=== PATIENT | male | born 1965 | race Caucasian/White ===

== ENCOUNTER 2016-06-25 12:14 | Emergency (ER) | payer MEDICARE, MEDICAID ==
[~2016-06-25] VITALS: Ht 180.3 cm; Wt 68.0 kg
[~2016-06-25 12:14] MED LIST: ACETAMINOPHEN500 M3 ORAL; ALBUTEROL SULF8.5 GM INH; ALBUTEROL2.5 MG/3 M HHN; AMOXICILLIN875 MG PO; ATIVAN0.5 MG ORAL; AURALGAN OTIC1 DROP LEFT EAR; AZITHROMYCIN250 MG ORAL; CLONAZEPAM2 M1 PO; CYCLOBENZAPRINE10 MG ORAL; DEPAKOTE500 MG PO; DOXYCYCLINE MO100 MG ORAL; FLONASE1 SPRAYS NASAL; IBUPROFEN600 MG ORAL; KEFLEX500 MG ORAL; KLONOPIN; KLONOPIN1 MG ORAL; NORCO 5-325 TA1 EACH ORAL; PREDNISONE20 MG ORAL; RISPERDAL; RISPERDAL3 MG PO; ROBAXIN-750750 MG PO; SILVADENE CREAM50 GM TOP; TRAMADOL HCL50 MG ORAL; ZITHROMAX250 MG ORAL; ZYPREXA10 MG ORAL
[2016-06-25 12:20] VITALS: BP 123/54
[2016-06-25] MEDS ORDERED: ALBUTEROL2.5 MG/3 M INH (12:37)
[2016-06-25] MEDS ORDERED: TERBUTALINE SU2.5 MG PO (12:37)
[2016-06-25] MEDS ORDERED: ZITHROMAX250 MG ORAL (12:37)
[2016-06-25] MEDS ORDERED: ADULT AEROSOL1 EACH MC (12:43)
[2016-06-25 12:44] VITALS: BP 118/66
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
== END 2016-06-25 12:45 | disposition home or self-care (01) ==
LOC: EMR 12:25
DX: J44.1 Chronic obstructive pulmonary disease with (acute) exacerbation (principal); J45.909 Unspecified asthma, uncomplicated; F17.200 Nicotine dependence, unspecified, uncomplicated
CPT/HCPCS: 99284

== ENCOUNTER 2016-07-17 12:40 | Emergency (ER) | payer MEDICARE, MEDICAID ==
[~2016-07-17] VITALS: Ht 182.9 cm; Wt 68.0 kg
[~2016-07-17 12:40] MED LIST changes: +ADULT AEROSOL1 EACH MC; +ALBUTEROL2.5 MG/3 M INH; +TERBUTALINE SU2.5 MG PO
[2016-07-17] MEDS ORDERED: Ipratropium 0.02% Inh Soln 2.5ml UD HHN ONE (13:30)
[2016-07-17] MEDS ORDERED: Albuterol ud Inhalation HHN ONE (13:30)
[2016-07-17] MEDS ORDERED: PROAIR HFA8.5 GM INH (14:15)
[2016-07-17] MEDS ORDERED: PREDNISONE20 MG ORAL (14:15)
[2016-07-17 14:30] VITALS: BP 129/75
--- NOTE | 2016-07-17 19:22 | Emergency Room Report ---
History of Present Illness General Chief Complaint: General Complaint Source: Patient Present Illness [facility] The patient is a 50-year-old male with a history of chronic bronchitis presenting for increased cough and wheezing which began this morning. Cough is dry. Patient states that he recently began smoking cigarettes after quitting for the past month. Pt denies any pain. The patient denies other symptoms including N, V, F, chills, CP, RAYO, dizziness, rash Allergies: Coded Allergies: No Known Allergies (Unverified , 05/03/13) Patient History Past Medical History: see triage record Pertinent Family History: none Reviewed Nursing Documentation: PMH: Agreed, PSxH: Agreed Nursing Documentation-PMH Past Medical History: No History, Except For Hx Cardiac Problems: No Hx Hypertension: No Hx Pacemaker: No Hx Asthma: Yes Hx COPD: Yes Hx Diabetes: No Hx Cancer: No Hx Gastrointestinal Problems: No Hx Dialysis: No Hx Neurological Problems: No - bulging disc Hx Cerebrovascular Accident: No Hx Seizures: No Hx Weakness: Yes - marisa.lower ext. Review of Systems All Other Systems: negative except mentioned in HPI Physical Exam Vital Signs Date Time Temp Pulse Resp B/P Pulse Ox O2 Delivery O2 Flow Rate FiO2 07/17/16 12:45 97.2 70 20 126/66 98 Room Air Sp02 EP Interpretation: reviewed, normal General Appearance: no apparent distress, alert, GCS 15, non-toxic Head: normocephalic, atraumatic Eyes: bilateral eye PERRL, bilateral eye normal inspection ENT: hearing grossly normal, normal pharynx, no angioedema, normal voice Respiratory: wheezing - diffuse Cardiovascular #1: regular rate, rhythm, no edema Genitourinary: normal inspection, no CVA tenderness Musculoskeletal: back normal, gait/station normal, normal range of motion, non- tender Neurologic: alert, oriented x3, responsive, motor strength/tone normal, sensory intact, normal gait, speech normal Psychiatric: judgement/insight normal, memory normal, mood/affect normal, no suicidal/homicidal ideation Skin: normal color, no rash, warm/dry, well hydrated Lymphatic: no adenopathy Medical Decision Making PA Attestation Dr. Nunez is my supervising physician. Patient management was discussed with my supervising physician Diagnostic Impression: Primary Impression: COPD exacerbation ER Course The patient is a 50-year-old male with a history of chronic bronchitis presenting for increased cough and wheezing Differential diagnoses considered but not limited to: CPOD exacerbation, bronchitis, pneumonia Vitals are within normal limits. No apparent distress HEENT exam is unremarkable lungs: There is diffuse wheezing bilaterally. No accessory muscle use. No respiratory distress The patient is given a breathing treatment and is feeling much better. Patient will be discharged home with prescriptions for prednisone and albuterol ER precautions given Last Vital Signs Date Time Temp Pulse Resp B/P Pulse Ox O2 Delivery O2 Flow Rate FiO2 07/17/16 14:31 61 18 Room Air 07/17/16 14:30 97.2 129/75 98 Status: improved Disposition: HOME, SELF-CARE Condition: Improved Scripts Prednisone* (PREDNISONE*) 20 Mg Tablet 20 MG ORAL DAILY, #5 TAB 0 Refills Prov: SHAY DESOUZA 07/17/16 Albuterol Sulfate* (PROAIR HFA*) 8.5 Gm Hfa.aer.ad 2 PUFFS INH Q6H, #8.5 GM 0 Refills Prov: SHAY DESOUZA 07/17/16 Referrals: NOT CHOSEN IPA/MD,REFERRING (PCP) Patient Instructions: Smoking Cessation, Tips for Success, [id number], Chronic Obstructive Pulmonary Disease Exacerbation, Tobacco Use Disorder Additional Instructions: I discussed my findings with the patient. All questions and concerns have been answered. Treatment and medication compliance have been addressed. I advised the patient that they need to follow up with PMD in 3-5 days. Return to ED if pain remains or worsens, cough worsens or remains, you notice blood in your sputum, you notice wheezing, you experience a fever, or if needed for any reason. Patient verbalized understanding of discharge instructions. SHAY DESOUZA Jul 17, 2016 19:22
== END 2016-07-17 14:26 | disposition home or self-care (01) ==
LOC: EMR 13:00
DX: J44.1 Chronic obstructive pulmonary disease with (acute) exacerbation (principal); J45.909 Unspecified asthma, uncomplicated
CPT/HCPCS: 94640; 94664; 99284

== ENCOUNTER 2016-08-15 01:02 | Emergency (ER) | payer MEDICARE, MEDICAID ==
[~2016-08-15] VITALS: Ht 180.3 cm; Wt 68.0 kg
[~2016-08-15 01:02] MED LIST changes: +PROAIR HFA8.5 GM INH
[2016-08-15 01:21] VITALS: BP 124/78
[2016-08-15] MEDS ORDERED: Albuterol ud Inhalation HHN ONE (01:30)
[2016-08-15] MEDS ORDERED: Ipratropium 0.02% Inh Soln 2.5ml UD HHN ONE (01:30)
--- NOTE | 2016-08-15 01:59 | Emergency Room Report ---
History of Present Illness General Chief Complaint: General Complaint Source: Patient Present Illness HPI Is a 51-year-old male with a history of COPD and psych history. He continued to smoke. He presents with chief complaint of weakness. Able to walk her without difficulty. He was just at [facility] 2 days ago. Requesting pain medication and anxiety medication. Denies any fever chills denies any nausea vomiting. No other complaint. Allergies: Coded Allergies: No Known Allergies (Unverified , 05/03/13) Patient History Past Medical History: see triage record, old chart reviewed, COPD Past Surgical History: other Pertinent Family History: none Social History: Reports: smoking Immunizations: other Reviewed Nursing Documentation: PMH: Agreed, PSxH: Agreed Nursing Documentation-PMH Past Medical History: No History, Except For Hx Cardiac Problems: No Hx Hypertension: No Hx Pacemaker: No Hx Asthma: Yes Hx COPD: Yes Hx Diabetes: No Hx Cancer: No Hx Dialysis: No History Of Psychiatric Problem: Yes Hx Neurological Problems: No - bulging disc Hx Cerebrovascular Accident: No Hx Seizures: No Hx Weakness: Yes - marisa.lower ext. Review of Systems Constitutional: Reports: weakness Eye: Denies: blurred vision, eye pain ENT: Denies: ear pain, nose congestion, throat swelling Respiratory: Denies: cough, shortness of breath Cardiovascular: Denies: chest pain, palpitations Gastrointestinal: Denies: abdominal pain, diarrhea, nausea, vomiting Musculoskeletal: Denies: back pain, joint pain Skin: Denies: rash Neurological: Denies: headache, numbness Endocrine: Denies: increased thirst, increased urine Hematologic/Lymphatic: Denies: easy bruising All Other Systems: negative except mentioned in HPI Physical Exam Vital Signs Date Time Temp Pulse Resp B/P Pulse Ox O2 Delivery O2 Flow Rate FiO2 08/15/16 01:13 98.1 83 14 124/78 98 Room Air vitals normal Sp02 EP Interpretation: reviewed, normal General Appearance: well appearing, no apparent distress, alert Head: normocephalic, atraumatic Eyes: bilateral eye EOMI, bilateral eye PERRL ENT: hearing grossly normal, normal pharynx Neck: full range of motion, supple, no meningismus Respiratory: chest non-tender, wheezing Cardiovascular #1: regular rate, rhythm, no murmur Gastrointestinal: normal bowel sounds, non tender, no mass, no organomegaly, no bruit, non-distended Musculoskeletal: back normal, gait/station normal, normal range of motion Psychiatric: mood/affect normal Skin: warm/dry Medical Decision Making Diagnostic Impression: Primary Impression: COPD exacerbation Additional Impression: drug seeking behavior ER Course Patient presents with drug seeking behavior. He is asking for narcotic and anxiety medication. He appear to be sedated from medication her ready. He does have slight wheezing which cleared after treatment. I told to stop smoking. Since wheezing cleared quickly I will hold off any steroid. I see no evidence of pneumonia, sepsis, ACS to name a few. Last Vital Signs Date Time Temp Pulse Resp B/P Pulse Ox O2 Delivery O2 Flow Rate FiO2 08/15/16 01:42 89 18 95 Room Air 08/15/16 01:21 98.1 124/78 Status: improved Disposition: HOME, SELF-CARE Condition: Stable Additional Instructions: Stop smoking. Take your inhaler. Return if worse. Follow with your doctor in 7 days BIB CHAVEZ M.D. Aug 15, 2016 01:59
[2016-08-15 02:23] VITALS: BP 124/78
== END 2016-08-15 02:23 | disposition home or self-care (01) ==
LOC: EMR 01:30
DX: J44.1 Chronic obstructive pulmonary disease with (acute) exacerbation (principal); Z76.5 Malingerer [conscious simulation]; F17.200 Nicotine dependence, unspecified, uncomplicated; J45.909 Unspecified asthma, uncomplicated
CPT/HCPCS: 94640; 94664; 99282

== ENCOUNTER 2016-11-22 14:22 | Emergency (ER) | payer MEDICARE, MEDICAID ==
[~2016-11-22] VITALS: Ht 182.9 cm; Wt 72.6 kg
[2016-11-22 14:40] VITALS: BP 156/83
[2016-11-22] MEDS ORDERED: Albuterol ud Inhalation HHN ONE (14:45)
--- NOTE | 2016-11-22 14:52 | Emergency Room Report ---
History of Present Illness General Chief Complaint: General Complaint Source: Patient Present Illness HPI 51YOM walk-in [employer] patient with dyspnea for 3-4 days. + heavy smoker. No improvement with home albuterol. [place] Denies fever/ chills, cough. Denies CHF history Had CXR 4 days ago at [facility], was negative for PNA Was not given any other Rx from [facility] Allergies: Coded Allergies: No Known Allergies (Unverified , 05/03/13) Patient History Past Medical History: COPD Past Surgical History: none Pertinent Family History: none Social History: Reports: smoking Nursing Documentation-[facility] Past Medical History: No History, Except For Hx Cardiac Problems: No Hx Hypertension: No Hx Pacemaker: No Hx Asthma: Yes Hx COPD: Yes Hx Diabetes: No Hx Cancer: No Hx Dialysis: No Hx Neurological Problems: Yes - bulging disc Hx Cerebrovascular Accident: No Hx Seizures: No Hx Weakness: Yes - marisa.lower ext. Review of Systems All Other Systems: negative except mentioned in HPI Physical Exam Vital Signs Date Time Temp Pulse Resp B/P Pulse Ox O2 Delivery O2 Flow Rate FiO2 11/22/16 14:25 98.1 86 18 156/83 98 Room Air Sp02 EP Interpretation: reviewed, normal General Appearance: normal inspection, well appearing, no apparent distress, alert, GCS 15, non-toxic, other - Disheveled Head: normocephalic, atraumatic Eyes: bilateral eye EOMI, bilateral eye PERRL ENT: normal ENT inspection, hearing grossly normal, normal voice Neck: normal inspection, full range of motion, supple, no bony tend Respiratory: normal inspection, lungs clear, normal breath sounds, no respiratory distress, no retraction, no accessory muscle use, speaking full sentences, wheezing Cardiovascular #1: regular rate, rhythm, no edema Gastrointestinal: normal inspection, normal bowel sounds, non tender, soft, no guarding, no hernia Genitourinary: no CVA tenderness Musculoskeletal: normal inspection, back normal, normal range of motion, Asya' s Sign negative Neurologic: normal inspection, alert, oriented x3, responsive, 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 Afebrile. No hypoxia. - Lungs with mild exp wheezing - Improved with albuterol - Patient also saw consult for concern for the rodent infestation at his current living space CURES shows Rx for 90 Clonazepam on 10/[address] Madhu Herrera Giving additional Rx for controlled substance would violate patient's contract with his physician and would be contributing to controlled substance abuse at this time Last Vital Signs Date Time Temp Pulse Resp B/P Pulse Ox O2 Delivery O2 Flow Rate FiO2 11/22/16 14:25 98.1 86 18 156/83 98 Room Air Status: improved Disposition: HOME, SELF-CARE ROSIE HASTINGS M.D. Nov 22, 2016 14:52
[2016-11-22 15:40] VITALS: BP 136/75
== END 2016-11-22 15:40 | disposition home or self-care (01) ==
LOC: EMR 14:54
DX: J45.901 Unspecified asthma with (acute) exacerbation (principal); J44.9 Chronic obstructive pulmonary disease, unspecified; F17.200 Nicotine dependence, unspecified, uncomplicated
CPT/HCPCS: 94640; 99282

== ENCOUNTER 2017-03-18 12:51 | Inpatient (IN) | payer MEDICARE, MEDICAID ==
[~2017-03-18] VITALS: Ht 180.3 cm; Wt 70.3 kg
[2017-03-18 13:06] VITALS: BP 128/65
[2017-03-18] MEDS ORDERED: Ipratropium 0.02% Inh Soln 2.5ml UD HHN ONE (13:15)
[2017-03-18] MEDS: Albuterol ud Inhalation HHN SCH ×3 (13:15→13:45)
--- NOTE | 2017-03-18 13:16 | Emergency Room Report ---
History of Present Illness General Chief Complaint: Chest Pain Source: Patient Present Illness HPI 51-year-old male with pmhx of psych, chronic smoker p/w chest pain for one week. Chest pain started while rest. Localized to substernal area, no radiation to back or other areas, sharp in nature, has been constant for one week, also complains of mild SOB and states that he is wheezing. Denies palpitations, diaphoresis, n/v. This is the first occurrence of chest pain. Denies fever, chills, cough, abd pain. Denies trauma. Patient has never had a stress test. Patient has never had a cardiac catheterization. no family history of cardiac disease at a young age. Allergies: Coded Allergies: No Known Allergies (Unverified , 05/03/13) Patient History Past Medical History: see triage record Past Surgical History: none Pertinent Family History: none Reviewed Nursing Documentation: PMH: Agreed, PSxH: Agreed Nursing Documentation-PMH Hx Cardiac Problems: No Hx Hypertension: No Hx Pacemaker: No Hx Asthma: Yes Hx COPD: Yes Hx Diabetes: No Hx Cancer: No Hx Dialysis: No Hx Neurological Problems: Yes - bulging disc Hx Cerebrovascular Accident: No Hx Seizures: No Hx Weakness: Yes - marisa.lower ext. Review of Systems All Other Systems: negative except mentioned in HPI Physical Exam Vital Signs Date Time Temp Pulse Resp B/P (MAP) Pulse Ox O2 Delivery O2 Flow Rate FiO2 03/18/17 12:53 97.5 72 20 136/81 100 Room Air Sp02 EP Interpretation: reviewed, normal General Appearance: normal inspection, well appearing, no apparent distress, alert, GCS 15, non-toxic, other - Speaking complete sentences Head: normocephalic, atraumatic Eyes: bilateral eye normal inspection, bilateral eye PERRL, bilateral eye EOMI ENT: normal ENT inspection, normal pharynx, normal voice, moist mucus membranes Neck: normal inspection, full range of motion, supple Respiratory: wheezing, expiration, chest symmetrical Cardiovascular #1: normal inspection, regular rate, rhythm, normal capillary refill Cardiovascular #2: 2+ radial (R), 2+ radial (L) Gastrointestinal: normal inspection, non tender, soft, non-distended, no guarding Musculoskeletal: normal inspection, back normal, normal range of motion, non- tender Neurologic: normal inspection, alert, oriented x3, responsive, motor strength/ tone normal, sensory intact, normal gait, speech normal Psychiatric: normal inspection, judgement/insight normal, memory normal Skin: normal inspection, normal color, no rash, warm/dry, well hydrated, normal turgor Medical Decision Making Diagnostic Impression: Primary Impression: COPD exacerbation Additional Impression: ACS (acute coronary syndrome) ER Course 51-year-old male with chest pain for one week DDX: ACS vs. asthma/COPD exacerbation CHF vs. pneumonia vs. gastritis/GERD vs. pneumothorax We Plan: IV access, obtain labs including troponin, EKG, CXR ASA Duo nebs and steroids Anticipate admission ER course: Patient was treated with ASA. Patient has remained on a monitor, HD stable, chest pain improved. Repeat lung exam improved however still continues to have mild wheezing Speaking in complete sentences Stable for transfer to telemetry floor Disposition: Patient requires admission for chest pain and COPD exacerbation Due to patient's history and comorbidities, patient has increased risk of acute cardiac event. Patient requires admission for further workup, serial troponin D/W hospitalist Dr Tolentino Please note that this Emergency Department Report was dictated using [employer] supervisor technology software, occasionally this can lead to erroneous entry secondary to interpretation by the dictation equipment. EKG Diagnostic Results EP Interpretation: Yes Rate: normal Rhythm: NSR ST Segments: No acute changes ASA given to patient: no Rhythm Strip EP Interpretation: Yes Rate: 70 Rhythm: NSR, no PVCs, no ectopy Chest X-ray CXR: Ordered: Yes 1 view Indication: Chest pain EP interpretation: Yes Interpretation: No consolidation, no effusion, no PTX, no acute cardiopulmonary disease Impression: No acute disease Electronically signed by Ame Mason MD Laboratory Tests Test 03/18/17 13:20 White Blood Count 7.2 K/UL (4.8-10.8) Red Blood Count 4.16 M/UL (4.70-6.10) L Hemoglobin 13.4 G/DL (14.2-18.0) L Hematocrit 39.2 % (42.0-52.0) L Mean Corpuscular Volume 94 FL (80-99) Mean Corpuscular Hemoglobin 32.3 PG (27.0-31.0) H Mean Corpuscular Hemoglobin Concent 34.2 G/DL (32.0-36.0) Red Cell Distribution Width 11.8 % (11.6-14.8) Platelet Count 285 K/UL (150-450) Mean Platelet Volume 8.5 FL (6.5-10.1) Neutrophils (%) (Auto) 53.1 % (45.0-75.0) Lymphocytes (%) (Auto) 33.4 % (20.0-45.0) Monocytes (%) (Auto) 9.2 % (1.0-10.0) Eosinophils (%) (Auto) 3.3 % (0.0-3.0) H Basophils (%) (Auto) 1.0 % (0.0-2.0) Sodium Level 140 MMOL/L (136-145) Potassium Level 4.3 MMOL/L (3.5-5.1) Chloride Level 105 MMOL/L (98-107) Carbon Dioxide Level 29 MMOL/L (21-32) Anion Gap 6 mmol/L (5-15) Blood Urea Nitrogen 5 mg/dL (7-18) L Creatinine 0.7 MG/DL (0.55-1.30) Estimate Glomerular Filtration Rate > 60 mL/min (>60) Glucose Level 88 MG/DL (74-106) Calcium Level 8.6 MG/DL (8.5-10.1) Total Bilirubin 0.2 MG/DL (0.2-1.0) Aspartate Amino Transferase (AST) 16 U/L (15-37) Alanine Aminotransferase (ALT) 16 U/L (12-78) Alkaline Phosphatase 34 U/L (46-116) L Total Creatine Kinase 104 U/L (26-308) Creatine Kinase MB Pending Creatine Kinase MB Relative Index 3.1 Troponin I 0.004 ng/mL (0.000-0.056) Pro-B-Type Natriuretic Peptide 85 pg/mL (0-125) Total Protein 7.3 G/DL (6.4-8.2) Albumin 3.5 G/DL (3.4-5.0) Globulin 3.8 g/dL Albumin/Globulin Ratio 0.9 (1.0-2.7) L Last Vital Signs Date Time Temp Pulse Resp B/P (MAP) Pulse Ox O2 Delivery O2 Flow Rate FiO2 03/18/17 13:06 98.7 67 16 128/65 97 Room Air Disposition: ADMITTED INPATIENT Condition: Serious Ame Mason M.D. Mar 18, 2017 13:16
[2017-03-18 13:35] LABS: EOSINOPHILS % (AUTO) 3.3 % (0.0-3.0); LYMPHOCYTES % (AUTO) 33.4 % (20.0-45.0); MEAN CORPUSCULAR HEMOGLOBIN 32.3 PG (27.0-31.0); MEAN CORPUSCULAR HGB CONC 34.2 G/DL (32.0-36.0); MEAN CORPUSCULAR VOLUME 94 FL (80-99); MEAN PLATELET VOLUME 8.5 FL (6.5-10.1); MONOCYTES % (AUTO) 9.2 % (1.0-10.0); NEUTROPHILS % (AUTO) 53.1 % (45.0-75.0); PLATELET COUNT 285 K/UL (150-450); RED BLOOD COUNT 4.16 M/UL (4.70-6.10); RED CELL DISTRIBUTION WIDTH 11.8 % (11.6-14.8); WHITE BLOOD COUNT 7.2 K/UL (4.8-10.8)
[2017-03-18 13:46] LABS: ANION GAP 6 mmol/L (5-15); CALCIUM 8.6 MG/DL (8.5-10.1); CARBON DIOXIDE 29 MMOL/L (21-32); CHLORIDE 105 MMOL/L (98-107); CREATININE 0.7 MG/DL (0.55-1.30); GLOMERULAR FILTRATION RATE > 60 mL/min (>60); POTASSIUM 4.3 MMOL/L (3.5-5.1); SODIUM 140 MMOL/L (136-145)
[2017-03-18 14:01] LABS: ALANINE AMINOTRANSFERASE 16 U/L (12-78); ALBUMIN/GLOBULIN RATIO 0.9 (1.0-2.7); ASPARTATE AMINO TRANSFERASE 16 U/L (15-37); TOTAL PROTEIN 7.3 G/DL (6.4-8.2)
[2017-03-18 14:21] LABS: CKMB 2.4 NG/ML (0.0-3.6)
[2017-03-18 15:41] VITALS: BP 90/66
[2017-03-18] MEDS ORDERED: Miralax 17gm pkt ORAL PRN (17:15)
[2017-03-18] MEDS ORDERED: Enalaprilat 2.5mg/2ml Inj IV PRN (17:15)
[2017-03-18] MEDS ORDERED: Ketorolac 30mg Inj IV PRN (17:15)
[2017-03-18] MEDS ORDERED: Morphine Sulfate 2mg/ml Inj IVP PRN (17:15)
[2017-03-18] MEDS ORDERED: Nitroglycerin Subl 0.4mg tab SL PRN (17:15)
[2017-03-18] MEDS ORDERED: Albuterol/Ipratropium 3ml neb HHN PRN (17:15)
[2017-03-18] MEDS ORDERED: dilTIAZem HCl 25mg/5ml Inj IV PRN (17:15)
[2017-03-18 20:00] VITALS: BP 108/59
[2017-03-18] MEDS ORDERED: Heparin 5000 units/ml inj SUBQ SCH (21:00)
[2017-03-18] MEDS ORDERED: Depakote 500mg tab ORAL SCH (21:00)
[2017-03-18] MEDS ORDERED: Zolpidem 5mg tab ORAL PRN ×3 (23:30→23:45)
[2017-03-19] MEDS ORDERED: Zolpidem 5mg tab ORAL PRN
[2017-03-19 00:09] VITALS: BP 118/63
[2017-03-19] MEDS: Zolpidem 5mg tab ORAL PRN ×2 (00:23→00:52)
[2017-03-19] MEDS ORDERED: ZyPREXA Zydis 10mg tab ORAL SCH (01:09)
[2017-03-19] MEDS ORDERED: Aspirin Baby 81mg ORAL SCH (09:00)
--- NOTE | 2017-03-19 09:04 | Diagnostic Imaging Report ---
Indication: Chest pain Technique: One view of the chest Comparison: 11/11/2015 Findings: Lungs and pleural spaces are clear. Heart size is normal. Inspiration is suboptimal. Findings are unchanged Impression: No acute process
--- NOTE | 2017-03-19 17:59 | Cardiology Report ---
APPROVED REPORT EKG Measurement Heart [id number] MI [id number] Normal sinus rhythm Normal ECG
--- NOTE | 2017-03-20 10:57 | Discharge Summary ---
Discharge Summary Hospital Course Date of Admission Mar 18, 2017 at 14:55 Date of Discharge Mar 19, 2017 at 02:15 Admitting Diagnosis acs/copd HPI Francisco Avila is a 51 year old male who was admitted on Mar 18, 2017 at 14: 55 for Acute Coronary Syndrome Hospital Course dc summary #[id number] Discharge Discharge Disposition Patient signed AMA Discharge Diagnoses: Discharge Instructions Discharge Instructions Special Instructions I have been assigned to complete a D/C Summary on this account. I was not involved in the patient management Lucita Dominguez NP ([facility]) Mar 20, 2017 10:57
--- NOTE | 2017-03-20 21:45 | Discharge Summary 2 SIG ---
DATE OF ADMISSION: 03/18/2017 DATE OF SIGNING AGAINST MEDICAL ADVISE: 03/19/2017 REASON FOR ADMISSION: 51-year-old male with a history of COPD, psychiatric disorder, current smoker, presented to emergency department complaining of the chest pain for one week. The patient reported that chest pain started when he was at rest and localized to substernal area. No radiation. Pain described as a sharp and constant. The patient also reported mild shortness of breath and wheezing. The patient denied palpitation, diaphoresis, nausea, vomiting. The patient denied fever, chills, cough, abdominal pain. He denied trauma to chest wall. The patient never had a stress test or cardiac catheterization. The patient denies any cardiac history. No elevated blood pressure. No family history of cardiac disease at young age. Troponin was negative. Vital signs were stable. EKG revealed normal sinus rhythm. No acute ischemic changes. Chest x-ray revealed no acute cardiopulmonary pathology. The patient was given aspirin. The patient was provided with nebulizing treatment with DuoNeb and given steroids. The patient admitted for further management for COPD exacerbation and chest pain. HOSPITAL STAY: The patient admitted to telemetry floor. Serial troponin were ordered. First two troponin were negative. Sinus rhythm on the monitor. Cardiology consult requested. Echocardiogram was ordered. Aspirin was continued. DVT prophylaxis provided. Psych medications such as Zyprexa, Risperdal, and Depakote were restarted. DVT prophylaxis provided. Supplemental oxygen provided as needed to keep saturation above 92%. The patient decided to sign against medical advice. The risks and consequences of signing against medical advice were discussed with the patient. The patient verbalized, understanding, but insisted on leaving, , signed the form, and left. FINAL DIAGNOSES: 1. Chronic obstructive pulmonary disease exacerbation. 2. Chest pain, rule out acute coronary syndrome. . Rickie Tolentino M.D. I have been assigned to dictate discharge summary on this account and I was not involved in the patient's management. Lucita Dominguez ([facility] NBoyPBoy DR: Dennis JOB#: [id number] CC: FIONA
--- NOTE | 2017-03-26 12:51 | History and Physical ---
History of Present Illness General Date patient seen: Mar 10, 2017 Reason for Hospitalization: Chest Pain Present Illness HPI 51-year-old male with pmhx of psych, chronic smoker presented to ER with CC opf chest pain for one week, while rest. Localized to substernal area, no radiation to back or other areas, sharp in nature, has been constant for one week, also complains of mild SOB and states that he is wheezing. Denies palpitations, diaphoresis, n/v. This is the first occurrence of chest pain. Denies fever, chills, cough, abd pain. Pt is admitted to telemetry for further evaluation. Allergies: Coded Allergies: No Known Allergies (Unverified , 05/03/13) Medication History Scheduled Albuterol Sulfate* (Albuterol Sulfate Mdi*), 2 PUFF INH Q6H Albuterol Sulfate* (Albuterol Sulfate Mdi*), 2 PUFF INH Q3H Albuterol Sulfate* (Proair Hfa*), 2 PUFFS INH Q6H Azithromycin* (Zithromax*), 250 MG ORAL DAILY Cephalexin* (Keflex*), 500 MG ORAL Q6H Clonazepam (Clonazepam), 2 MG PO BID, (Reported) Divalproex Sodium (Depakote), 1,000 MG PO Q12HR, (Reported) Ibuprofen* (Motrin*), 600 MG ORAL THREE TIMES A DAY Methocarbamol* (Robaxin-750*), 750 MG PO QID, (Reported) Olanzapine* (Zyprexa*), 20 MG ORAL QHS, (Reported) Prednisone* (Prednisone*), 40 MG ORAL DAILY Prednisone* (Prednisone*), 20 MG ORAL DAILY Risperidone (Risperdal), 2 MG PO DAILY, (Reported) Terbutaline Sulfate (Terbutaline Sulfate), 2.5 MG PO Q6HR Scheduled PRN Albuterol Sulfate* (Albuterol Sulfate Hhn*), 3 ML INH Q6H PRN for Shortness of Breath Hydrocodone Bit/Acetaminophen 5-325* (Witter 5-325*), 1 TAB ORAL Q12HR PRN for For Pain Durable Medical Equipment Nebulizer Accessories (Adult Aerosol Mask), 1 EACH , (DME) Patient History Healthcare decision maker N Resuscitation status Advanced Directive on File Past Medical/Surgical History Past Medical/Surgical History: (1) Chronic back pain (2) History of COPD Review of Systems Respiratory: Reports: cough, shortness of breath, sputum Physical Exam General Appearance: WD/WN Lines, tubes and drains: peripheral HEENT: normocephalic, anicteric Neck: non-tender, normal alignment Respiratory/Chest: chest wall non-tender, normal breath sounds Cardiovascular/Chest: normal peripheral pulses, normal rate Abdomen: normal bowel sounds, non tender Genitourinary/Rectal: normal genital exam Height (Feet): 5 Height (Inches): 11.00 Weight (Pounds): 155 Assessment/Plan Problem List: (1) ACS (acute coronary syndrome) ICD Codes: I24.9 - Acute ischemic heart disease, unspecified SNOMED: 928527245 (2) COPD exacerbation ICD Codes: J44.1 - Obstructive chronic bronchitis with exacerbation SNOMED: 684072090 Assessment/Plan respiratory treatment check sputum serial troponin cardio evaluation symptomatic treatment REJI RIVERO Mar 26, 2017 12:51
== END 2017-03-19 02:15 | disposition left against medical advice (07) | DRG 191 ==
LOC: EMR 13:48 → EDBEDREQ 14:48 → 2E 14:55
DX: J44.1 Chronic obstructive pulmonary disease with (acute) exacerbation (principal); I24.9 Acute ischemic heart disease, unspecified; R07.9 Chest pain, unspecified; F17.200 Nicotine dependence, unspecified, uncomplicated; F99 Mental disorder, not otherwise specified
CPT/HCPCS: 36415; 71010; 80053; 82550; 82553; 83880; 84484; 85025; 93005; 94640; 94664; 99285

== ENCOUNTER 2017-03-26 19:14 | Emergency (ER) | payer MEDICARE, MEDICAID ==
[~2017-03-26] VITALS: Ht 180.3 cm; Wt 68.0 kg
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
[2017-03-26] MEDS ORDERED: TYLENOL EXTRA500 MG ORAL (20:57)
[2017-03-26 22:07] VITALS: BP 147/61
--- NOTE | 2017-03-27 10:20 | Diagnostic Imaging Report ---
Indications: PAIN Technique: Three views of the left knee Comparison: None Findings: No acute fractures. No dislocations. Joint spaces are preserved. No radiopaque foreign body. Normal mineralization. Impression: No acute process
--- NOTE | 2017-03-27 10:21 | Diagnostic Imaging Report ---
Indication: PAIN Technique: 3 views of the right knee Comparison: None Findings:There is minimal narrowing, presumed degenerative, of the medial joint compartment. The lateral and patellofemoral compartments are unremarkable. No acute fractures. No dislocations. No suprapatellar effusion. No radiopaque foreign body. Normal mineralization Impression:Negative
== END 2017-03-26 22:07 | disposition home or self-care (01) ==
LOC: EMR 20:06
DX: M25.562 Pain in left knee (principal); S80.02XA Contusion of left knee, initial encounter; S80.01XA Contusion of right knee, initial encounter; V43.62XA Car passenger injured in collision with other type car in traffic accident, initial encounter; Y92.410 Unspecified street and highway as the place of occurrence of the external cause; M54.5 Low back pain; J44.9 Chronic obstructive pulmonary disease, unspecified
CPT/HCPCS: 99284

== ENCOUNTER 2017-05-07 11:53 | Emergency (ER) | payer MEDICAID, MEDICARE ==
[~2017-05-07] VITALS: Ht 180.3 cm; Wt 68.0 kg
[~2017-05-07 11:53] MED LIST changes: +TYLENOL EXTRA500 MG ORAL
[2017-05-07 12:45] VITALS: BP 150/77
--- NOTE | 2017-05-07 15:13 | Emergency Room Report ---
History of Present Illness General Chief Complaint: General Complaint Present Illness Allergies: Coded Allergies: No Known Allergies (Unverified , 05/03/13) Nursing Documentation-PMH Hx Cardiac Problems: No Hx Hypertension: No Hx Pacemaker: No Hx Asthma: Yes Hx COPD: Yes Hx Diabetes: No Hx Cancer: No Hx Dialysis: No History Of Psychiatric Problem: Yes - Schizophrenia Hx Neurological Problems: Yes Hx Cerebrovascular Accident: No Hx Seizures: No Hx Weakness: Yes - marisa.lower ext. Physical Exam Vital Signs Date Time Temp Pulse Resp B/P (MAP) Pulse Ox O2 Delivery O2 Flow Rate FiO2 05/07/17 12:19 97.9 82 16 150/77 98 Room Air Medical Decision Making Diagnostic Impression: Primary Impression: Patient left without being seen ER Course patient left prior to MD evaluation Last Vital Signs Date Time Temp Pulse Resp B/P (MAP) Pulse Ox O2 Delivery O2 Flow Rate FiO2 05/07/17 12:45 82 16 150/77 98 Room Air 05/07/17 12:19 97.9 Status: unchanged Disposition: LEFT W/OUT BEING SEEN Condition: Stable JOHN RUSHING M.D. May 07, 2017 15:13
== END 2017-05-07 12:50 | disposition left against medical advice (07) ==
LOC: EMR 12:48
DX: R52 Pain, unspecified (principal); Z53.21 Procedure and treatment not carried out due to patient leaving prior to being seen by health care provider
CPT/HCPCS: 99281

== ENCOUNTER 2017-05-17 18:40 | Emergency (ER) | payer MEDICARE ==
[~2017-05-17] VITALS: Ht 180.3 cm; Wt 77.1 kg
[2017-05-17 19:31] VITALS: BP 148/83
--- NOTE | 2017-05-18 15:19 | Emergency Room Report ---
History of Present Illness General Chief Complaint: General Complaint Source: Patient Present Illness Allergies: Coded Allergies: No Known Allergies (Unverified , 05/03/13) Nursing Documentation-PMH Past Medical History: No History, Except For Hx Cardiac Problems: No Hx Hypertension: No Hx Pacemaker: No Hx Asthma: Yes Hx COPD: Yes Hx Diabetes: No Hx Cancer: No Hx Dialysis: No History Of Psychiatric Problem: Yes - Schizophrenia Hx Neurological Problems: No Hx Cerebrovascular Accident: No Hx Seizures: No Hx Weakness: Yes - marisa.lower ext. Physical Exam Vital Signs Date Time Temp Pulse Resp B/P (MAP) Pulse Ox O2 Delivery O2 Flow Rate FiO2 05/17/17 19:08 98.2 73 16 148/83 95 Room Air Medical Decision Making Diagnostic Impression: Primary Impression: Encounter for generalized patient complaints ER Course patient left without being seen Last Vital Signs Date Time Temp Pulse Resp B/P (MAP) Pulse Ox O2 Delivery O2 Flow Rate FiO2 05/17/17 19:35 98.2 73 16 148/83 95 Room Air Status: unchanged Disposition: LEFT W/OUT BEING SEEN Condition: Stable Referrals: VAHE BOONE (PCP) JOHN RUSHING M.D. May 18, 2017 15:19
== END 2017-05-17 19:35 | disposition left against medical advice (07) ==
LOC: EMR 19:29
DX: R52 Pain, unspecified (principal); Z53.21 Procedure and treatment not carried out due to patient leaving prior to being seen by health care provider
CPT/HCPCS: 99282

== ENCOUNTER 2017-07-23 14:35 | Emergency (ER) | payer MEDICARE ==
[~2017-07-23] VITALS: Ht 182.9 cm; Wt 70.3 kg
[2017-07-23 14:58] VITALS: BP 137/80
--- NOTE | 2017-07-23 15:21 | Emergency Room Report ---
History of Present Illness General Chief Complaint: Upper Respiratory Illness Source: Patient Present Illness HPI 51 yo male patient presents to ER complaining of cough for "awhile". States cough is dry; reports cough is intermittent but has been worse recently. Reports hx of asthma and COPD. Reports has inhaler, did not use for current symptoms. Denies hemoptysis, fever, weight loss, night sweats. Reports history of smoking 1 pack of cigarettes for 12-13 years. Reports recently increased to smoking 2-3 packs/day. Denies chest pain, SOB, abdominal pain, RAYO, nausea, vomiting, calf pain. Allergies: Coded Allergies: No Known Allergies (Unverified , 05/03/13) Patient History Past Medical History: see triage record Reviewed Nursing Documentation: PMH: Agreed; PSxH: Agreed Nursing Documentation-PMH Past Medical History: No History, Except For Hx Cardiac Problems: No Hx Hypertension: No Hx Pacemaker: No Hx Asthma: Yes Hx COPD: Yes Hx Diabetes: No Hx Cancer: No Hx Dialysis: No Hx Neurological Problems: No Hx Cerebrovascular Accident: No Hx Seizures: No Hx Weakness: Yes - marisa.lower ext. Review of Systems All Other Systems: negative except mentioned in HPI Physical Exam Vital Signs Date Time Temp Pulse Resp B/P (MAP) Pulse Ox O2 Delivery O2 Flow Rate FiO2 07/23/17 14:48 97.9 88 18 137/80 95 Room Air 97.9 Sp02 EP Interpretation: reviewed, normal General Appearance: well appearing, no apparent distress, alert, GCS 15, non- toxic Head: normocephalic, atraumatic Eyes: bilateral eye normal inspection, bilateral eye PERRL ENT: hearing grossly normal, normal pharynx, no angioedema, normal voice, uvula midline, moist mucus membranes Neck: full range of motion Respiratory: no rhonchi, no respiratory distress, no accessory muscle use, speaking full sentences, wheezing Cardiovascular #1: regular rate, rhythm, no edema Musculoskeletal: back normal, digits/nails normal, gait/station normal, normal range of motion, non-tender, no calf tenderness, Asya's Sign negative Neurologic: alert, oriented x3, responsive, motor strength/tone normal, sensory intact Psychiatric: mood/affect normal Skin: no rash Lymphatic: no adenopathy Medical Decision Making PA Attestation Dr. Leon is my supervising Physician whom patient management has been discussed with. Diagnostic Impression: Primary Impression: Upper respiratory infection ER Course Pt presents to ED c/o cough. Hx of asthma and COPD. DDX considered but are not limited to asthma, viral URI, bronchitis, pneumonia. Low suspicion for PE per Well' criteria. No hemoptysis, no night sweats, low suspicion for pulmonary TB. VITAL SIGNS are WNL, patient is afebrile. Ordered breathing treatment and medication. ER COURSE Patient provided with dexamethasone. Albuterol/Atrovent breathing treatment provided. CXR negative for acute disease. Following treatment patient states breathing symptoms have improved, is ready for discharge. Patient is resting comfortably in no acute distress. Patient lungs shows diffuse intermittent wheezing, no crackles or rhonci, moving air well, speaking full sentences. Instructed patient to stop smoking. Return to ER for new or worsening of symptoms. DISCHARGE: -Rx given for Prednisone. -Rx provided for Albuterol MDI. -Rx provided for Promethazine for cough At this time pt is stable for d/c to home. Patient is resting comfortably in no acute distress, nontoxic appearing, able to answer questions without difficulty. Patient to take medications as instructed Will provide with patient care instructions and any necessary prescriptions. Care plan and follow-up instructions provided. Patient instructed to follow-up with primary care provider in 3 - 5 days. Patient questions asked and answered. Patient reports understanding and agreement to treatment plan. ER precautions given. Patient instructed to return to ER immediately for any new or worsening of symptoms including but not limited to increasing SOB, persistent fever, chest pain, intractable vomiting, hemoptysis. Chest X-Ray Diagnostic Results Chest X-Ray Diagnostic Results : Chest X-Ray Ordered: Yes # of Views/Limited/Complete: 1 View Indication: Chest Pain EP Interpretation: Yes PA Xray: Interpretation reviewed, by supervising MD, and agrees with findings. Interpretation: no consolidation, no effusion, no pneumothorax, no acute cardiopulmonary disease Impression: No acute disease MAUREEN Scribe Text Patrice Condon PA-C Last Vital Signs Date Time Temp Pulse Resp B/P (MAP) Pulse Ox O2 Delivery O2 Flow Rate FiO2 07/23/17 14:58 97.9 84 18 137/80 95 Room Air 97.9 Status: improved Disposition: HOME, SELF-CARE Condition: Stable Scripts Albuterol Sulfate* (ALBUTEROL SULFATE MDI*) 8.5 Gm Hfa.aer.ad 2 PUFF INH Q6H, #1 INH 0 Refills Prov: Tacho Condon 07/23/17 Promethazine Hcl (PROMETHAZINE HCL*) 6.25 Mg/5 Ml Syrup 5 ML ORAL Q8H, #120 ML 0 Refills Prov: Tacho Condon 07/23/17 Prednisone* (PREDNISONE*) 20 Mg Tablet 40 MG ORAL DAILY for 4 Days, #8 TAB Prov: Tacho Condon 07/23/17 Patient Instructions: Upper Respiratory Infection, Adult Additional Instructions: Followup with primary care provider in 3 -5 days. Take medications as directed. Patient questions asked and answered. ER precautions given, patient instructed to return to ER immediately for any new or worsening of symptoms including but not limited to chest pain, SOB, abdominal pain, intractable vomiting, fever. Tacho Condon Jul 23, 2017 15:21
[2017-07-23] MEDS ORDERED: Promethazine Plain 6.25mg/5ml ORAL ONE (15:30)
[2017-07-23] MEDS ORDERED: Albuterol/Ipratropium 3ml neb HHN ONE (15:30)
--- NOTE | 2017-07-23 16:10 | Diagnostic Imaging Report ---
Indication: Chest pain Technique: One view of the chest Comparison: 03/18/2017 Findings: No acute infiltrates, effusions, or congestion. Tortuous calcified aorta. Normal heart size. Upper mediastinum unremarkable. No significant change Impression: No acute process.
[2017-07-23] MEDS ORDERED: PREDNISONE20 MG ORAL (16:26)
[2017-07-23] MEDS ORDERED: PROMETHAZI6.25 MG/1 ORAL (16:26)
[2017-07-23] MEDS ORDERED: ALBUTEROL SULF8.5 GM INH (16:26)
[2017-07-23 16:38] VITALS: BP 128/77
== END 2017-07-23 16:41 | disposition home or self-care (01) ==
LOC: EMR 15:55
DX: J06.9 Acute upper respiratory infection, unspecified (principal); J44.9 Chronic obstructive pulmonary disease, unspecified; F17.210 Nicotine dependence, cigarettes, uncomplicated
CPT/HCPCS: 71045; 94640; 99284; J8540; J7620

== ENCOUNTER 2017-07-27 11:56 | Emergency (ER) | payer MEDICARE ==
[~2017-07-27] VITALS: Ht 177.8 cm; Wt 81.6 kg
[~2017-07-27 11:56] MED LIST changes: +PROMETHAZI6.25 MG/1 ORAL
[2017-07-27 12:09] VITALS: BP 133/56
--- NOTE | 2017-07-27 12:29 | Emergency Room Report ---
History of Present Illness General Chief Complaint: Dyspnea/Respdistress Source: Patient, Medical Record Present Illness HPI 51-year-old male with history of COPD presents with shortness of breath that occurred while walking on the sidewalk today, he denies chest pain, denies hemoptysis, but does report cough. Reports he has not been on steroids in the last few days, and was recently discharged from another hospital for COPD His not been taking his home meds lately. Allergies: Coded Allergies: No Known Allergies (Unverified , 05/03/13) Patient History Past Medical History: see triage record Reviewed Nursing Documentation: PMH: Agreed; PSxH: Agreed Nursing Documentation-PMH Past Medical History: No History, Except For Hx Cardiac Problems: No Hx Hypertension: No Hx Pacemaker: No Hx Asthma: Yes Hx COPD: Yes Hx Diabetes: No Hx Cancer: No Hx Dialysis: No Hx Neurological Problems: No Hx Cerebrovascular Accident: No Hx Seizures: No Hx Weakness: Yes - marisa.lower ext. Review of Systems All Other Systems: negative except mentioned in HPI Physical Exam Vital Signs Date Time Temp Pulse Resp B/P (MAP) Pulse Ox O2 Delivery O2 Flow Rate FiO2 07/27/17 11:51 97.4 81 20 169/79 94 Nasal Cannula 4.0 97.3 Sp02 EP Interpretation: reviewed, abnormal - Hypoxic General Appearance: no apparent distress, alert, non-toxic Head: normocephalic Eyes: bilateral eye normal inspection, bilateral eye PERRL, bilateral eye EOMI ENT: normal ENT inspection, hearing grossly normal, normal pharynx, no angioedema, normal voice, moist mucus membranes Neck: normal inspection, full range of motion, supple, supple/symm/no masses Respiratory: chest non-tender, respiratory distress, accessory muscle use, wheezing, expiration, chest symmetrical, palpation of chest normal Cardiovascular #1: normal peripheral pulses, regular rate, rhythm Cardiovascular #2: 2+ radial (R), 2+ radial (L) Gastrointestinal: normal inspection, non tender, soft, no mass, no guarding, no rebound Rectal: deferred Genitourinary: normal inspection, no CVA tenderness Musculoskeletal: back normal, gait/station normal, normal range of motion, non- tender, no calf tenderness Neurologic: alert, 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 he had basic labs, and EKG, chest x-ray all within normal limits. He will be discharged diagnosis COPD exacerbation given steroids and inhaler prescription, hhis oxygen saturation 94% on room air which seems to be normal for him. EKG Diagnostic Results EKG Time: 12:32 EP Interpretation: No ST-T segment changes no T-wave inversions Rate: normal Rhythm: NSR ST Segments: no acute changes ASA given to the pt in ED: Yes Rhythm Strip Diag. Results Rhythm Strip Time: 14:06 EP Interpretation: yes Rate: 70 Rhythm: NSR, no PVC's, no ectopy Chest X-Ray Diagnostic Results Chest X-Ray Diagnostic Results : Chest X-Ray Ordered: Yes # of Views/Limited/Complete: 1 View Indication: Shortness of Breath EP Interpretation: Yes PA Xray: Interpretation reviewed Interpretation: no consolidation, no effusion, no pneumothorax, no acute cardiopulmonary disease Impression: No acute disease Electronically Signed by: Rai Hines MD Last Vital Signs Date Time Temp Pulse Resp B/P (MAP) Pulse Ox O2 Delivery O2 Flow Rate FiO2 07/27/17 12:09 97.3 72 20 133/56 94 Nasal Cannula 97.3 07/27/17 11:51 4.0 Scripts Prednisone* (PREDNISONE*) 20 Mg Tablet 40 MG ORAL DAILY, #5 TAB Prov: RAI HINES M.D 07/27/17 Albuterol Sulfate* (ALBUTEROL SULFATE MDI*) 8.5 Gm Hfa.aer.ad 2 PUFF INH Q4H PRN for cough/wheezing, #1 EA 0 Refills Prov: RAI HINES M.D 07/27/17 RAI HINES M.D Jul 27, 2017 12:29
[2017-07-27] MEDS ORDERED: Albuterol ud Inhalation HHN ONE (12:30)
[2017-07-27] MEDS ORDERED: Ipratropium 0.02% Inh Soln 2.5ml UD HHN ONE (12:30)
[2017-07-27 12:48] LABS: ANION GAP 5 mmol/L (5-15); BLOOD UREA NITROGEN 11 mg/dL (7-18); CALCIUM 8.6 MG/DL (8.5-10.1); CARBON DIOXIDE 33 MMOL/L (21-32); CHLORIDE 104 MMOL/L (98-107); CREATININE 0.7 MG/DL (0.55-1.30); SODIUM 142 MMOL/L (136-145)
[2017-07-27 12:52] LABS: ALANINE AMINOTRANSFERASE 20 U/L (12-78); ALBUMIN 3.6 G/DL (3.4-5.0); ALKALINE PHOSPHATASE 37 U/L (46-116); ASPARTATE AMINO TRANSFERASE 18 U/L (15-37); BILIRUBIN,TOTAL 0.4 MG/DL (0.2-1.0)
[2017-07-27 13:33] LABS: BASOPHILS % (AUTO) 1.4 % (0.0-2.0); EOSINOPHILS % (AUTO) 10.5 % (0.0-3.0); HEMATOCRIT 40.8 % (42.0-52.0); HEMOGLOBIN 13.8 G/DL (14.2-18.0); LYMPHOCYTES % (AUTO) 34.3 % (20.0-45.0); MEAN CORPUSCULAR VOLUME 91 FL (80-99); MONOCYTES % (AUTO) 10.1 % (1.0-10.0); NEUTROPHILS % (AUTO) 43.7 % (45.0-75.0); PLATELET COUNT 334 K/UL (150-450); RED BLOOD COUNT 4.49 M/UL (4.70-6.10); RED CELL DISTRIBUTION WIDTH 11.5 % (11.6-14.8); WHITE BLOOD COUNT 8.5 K/UL (4.8-10.8)
[2017-07-27] MEDS ORDERED: PREDNISONE20 MG ORAL (14:18)
[2017-07-27] MEDS ORDERED: ALBUTEROL SULF8.5 GM INH (14:18)
--- NOTE | 2017-07-27 14:31 | Diagnostic Imaging Report ---
Indication: 07/23/2017 Technique: XRAY Chest 1v Comparison: None Findings: Heart size and mediastinal contours are within normal limits and stable compared to the prior exam. Atherosclerotic calcifications again noted. There is no focal consolidation, pneumothorax or pleural effusion. Osseous structures demonstrate no acute abnormality. Impression: No radiographic evidence of acute cardiopulmonary disease.
[2017-07-27] MEDS ORDERED: NICODERM CQ1 EAC1 TD (14:45)
[2017-07-27 14:46] VITALS: BP 145/62
--- NOTE | 2017-07-28 18:10 | Cardiology Report ---
APPROVED REPORT EKG Measurement Heart [id number] Normal sinus rhythm Normal ECG
== END 2017-07-27 14:51 | disposition home or self-care (01) ==
LOC: EDBD 11:56 → EMR 12:30
DX: J44.1 Chronic obstructive pulmonary disease with (acute) exacerbation (principal)
CPT/HCPCS: 36415; 71045; 80053; 84484; 85025; 93005; 94640; 99284; J7512

== ENCOUNTER 2017-08-06 15:51 | Emergency (ER) | payer MEDICARE ==
[~2017-08-06] VITALS: Ht 182.9 cm; Wt 77.1 kg
[~2017-08-06 15:51] MED LIST changes: +NICODERM CQ1 EAC1 TD
--- NOTE | 2017-08-06 16:08 | Emergency Room Report ---
History of Present Illness General Chief Complaint: Medication Refill Present Illness HPI 53-year-old male presents to the emergency department requesting medication refill. He states he lost his rx from last visit. Pt reports hx of COPD. He also requests nicotine patch. Pt also states he has chronic back pain and requests "pain patch" Pt. states he is not currently having pain however it gets worse at the end of the day. Denies trauma or fall. denies changes in character to his symptoms. Denies Productive cough, SOB , cough, Fevers or chills. Denies CP, Palpitations, LOC, AMS, dizziness, Changes in Vision, Sensation, paresthesias, or a sudden severe headache. Allergies: Coded Allergies: No Known Allergies (Unverified , 05/03/13) Patient History Past Medical History: see triage record, COPD Past Surgical History: none Pertinent Family History: none Social History: Reports: smoking Reviewed Nursing Documentation: PMH: Agreed; PSxH: Agreed Nursing Documentation-PMH Hx Cardiac Problems: No Hx Hypertension: No Hx Pacemaker: No Hx Asthma: Yes Hx COPD: Yes Hx Diabetes: No Hx Cancer: No Hx Dialysis: No Hx Neurological Problems: No Hx Cerebrovascular Accident: No Hx Seizures: No Hx Weakness: Yes - marisa.lower ext. Review of Systems All Other Systems: negative except mentioned in HPI Physical Exam Vital Signs Date Time Temp Pulse Resp B/P (MAP) Pulse Ox O2 Delivery O2 Flow Rate FiO2 08/06/17 15:54 98.4 87 20 128/81 98 Room Air 98.4 Sp02 EP Interpretation: reviewed, normal General Appearance: no apparent distress, alert, GCS 15, non-toxic, other - mildly discheveled. , Chronically Ill Head: normocephalic, atraumatic ENT: hearing grossly normal, normal voice Neck: full range of motion Respiratory: chest non-tender, lungs clear, normal breath sounds, no rhonchi, speaking full sentences, wheezing - scant expiratory wheezes, distal breathsounds. Cardiovascular #1: regular rate, rhythm Musculoskeletal: back normal, gait/station normal, normal range of motion, non- tender Neurologic: alert, oriented x3, responsive, motor strength/tone normal, sensory intact, normal gait, speech normal, other - pt has tremor. , grossly normal Psychiatric: judgement/insight normal, anxious Skin: normal color, no rash, warm/dry, well hydrated Medical Decision Making PA Attestation Dr. Mason is my supervising Physician whom patient management has been discussed with. Diagnostic Impression: Primary Impression: Encounter for medication refill Additional Impressions: Chronic back pain Qualified Codes: M54.5 - Low back pain; G89.29 - Other chronic pain History of COPD ER Course 53-year-old male presents to the emergency department requesting medication refill. He states he lost his rx from last visit. Pt reports hx of COPD. He also requests nicotine patch. Pt also states he has chronic back pain and requests "pain patch" Pt. states he is not currently having pain however it gets worse at the end of the day. Denies trauma or fall. denies changes in character to his symptoms. Denies Productive cough, SOB , cough, Fevers or chills. Denies CP, Palpitations, LOC, AMS, dizziness, Changes in Vision, Sensation, paresthesias, or a sudden severe headache. Ddx considered but are not limited to: drug seeking, OD, COPD exacerbation, pneumonia, medication noncompliance just to name a few. Vital signs: are WNL, pt. is afebrile H&PE are most consistent with need for medication refill. ORDERS: none required at this time, the diagnosis is clinical ED INTERVENTIONS: -Patient denies nebulized treatment in the ER, he states he has his mother waiting on him. DISCHARGE: At this time pt. is stable for d/c to home. Will provide printed patient care instructions, and any necessary prescriptions. Care plan and follow up instructions have been discussed with the patient prior to discharge. Last Vital Signs Date Time Temp Pulse Resp B/P (MAP) Pulse Ox O2 Delivery O2 Flow Rate FiO2 08/06/17 15:54 98.4 87 20 128/81 98 Room Air 98.4 Disposition: HOME, SELF-CARE Condition: Stable Scripts Nicotine 14MG Patch* (NICODERM CQ 14MG*) 1 Each Patch.td24 1 EACH TD DAILY, #30 EA Prov: Doris De La Rosa 08/06/17 Lidocaine (Lidoderm) 1 Each Adh..patch 1 PATCH TOPIC DAILY, #30 PATCH 0 Refills Patch(es) may remain in place for up to 12 hours in any 24-hour period. Prov: Doris De La Rosa 08/06/17 Albuterol Sulfate* (ALBUTEROL SULFATE MDI*) 8.5 Gm Hfa.aer.ad 2 PUFF INH Q4H, #1 INH 0 Refills Prov: Doris De La Rosa 08/06/17 Prednisone* (PREDNISONE*) 20 Mg Tablet 40 MG ORAL DAILY for 5 Days, #10 TAB Prov: Doris De La Rosa 08/06/17 Referrals: VAHE BOONE (PCP) Patient Instructions: Medicine Refill at the Emergency Department Additional Instructions: Take medications as directed. Follow up with a Primary Care Provider in 3-5 days, even if your symptoms have resolved. --Please review list of primary care clinics, if you do not already have a primary care provider Return sooner to ED if new symptoms occur, or current symptoms become worse. - Please note that this Emergency Department Report was dictated using [employer] technology software, occasionally this can lead to erroneous entry secondary to interpretation by the dictation equipment. Doris De La Rosa Aug 06, 2017 16:08
[2017-08-06] MEDS ORDERED: LIDODERM700 M1 TOPIC (16:10)
[2017-08-06] MEDS ORDERED: ALBUTEROL SULF8.5 GM INH (16:10)
[2017-08-06] MEDS ORDERED: PREDNISONE20 MG ORAL (16:10)
[2017-08-06] MEDS ORDERED: NICODERM CQ1 EAC1 TD (16:10)
[2017-08-06 16:20] VITALS: BP 128/81
== END 2017-08-06 16:20 | disposition home or self-care (01) ==
LOC: EMR 16:01
DX: Z76.0 Encounter for issue of repeat prescription (principal); G89.29 Other chronic pain; M54.5 Low back pain; J44.9 Chronic obstructive pulmonary disease, unspecified
CPT/HCPCS: 99284

== ENCOUNTER 2017-09-27 14:53 | Emergency (ER) | payer MEDICARE ==
[~2017-09-27] VITALS: Ht 180.3 cm; Wt 83.9 kg
[~2017-09-27 14:53] MED LIST changes: +LIDODERM700 M1 TOPIC
[2017-09-27] MEDS ORDERED: Albuterol/Ipratropium 3ml neb HHN ONE (15:15)
[2017-09-27] MEDS ORDERED: Acetaminophen 500mg (ES) tab ORAL ONE (15:45)
[2017-09-27] MEDS ORDERED: PREDNISONE20 MG ORAL (15:55)
[2017-09-27] MEDS ORDERED: ALBUTEROL SULF8.5 GM INH (15:55)
[2017-09-27 16:07] VITALS: BP 111/70
--- NOTE | 2017-09-27 17:47 | Emergency Room Report ---
History of Present Illness General Chief Complaint: Chest Pain Present Illness HPI Patient is a 52-year-old male who presented after increased chest tightness. Patient prior history of COPD. He reports having continued smoke cigarettes. He denies any change in cough. He denies any severe shortness of breath. Patient states this feels like prior COPD exacerbations. The patient denies any recent change in leg sensation or any increased swelling.The patient denies any fever. He denies any exertional changes. Allergies: Coded Allergies: No Known Allergies (Unverified , 05/03/13) Patient History Past Medical History: see triage record Reviewed Nursing Documentation: PMH: Agreed; PSxH: Agreed Nursing Documentation-PMH Hx Cardiac Problems: No Hx Hypertension: No Hx Pacemaker: No Hx Asthma: Yes Hx COPD: Yes Hx Diabetes: No Hx Cancer: No Hx Dialysis: No Hx Neurological Problems: No Hx Cerebrovascular Accident: No Hx Seizures: No Hx Weakness: Yes - marisa.lower ext. Review of Systems All Other Systems: negative except mentioned in HPI Physical Exam Vital Signs Date Time Temp Pulse Resp B/P (MAP) Pulse Ox O2 Delivery O2 Flow Rate FiO2 09/27/17 15:04 97.6 72 20 129/73 99 Room Air 97.5 09/27/17 16:06 21 Sp02 EP Interpretation: reviewed, normal General Appearance: normal inspection, well appearing, no apparent distress, alert, GCS 15 Head: atraumatic ENT: normal ENT inspection, hearing grossly normal, normal voice Neck: normal inspection, full range of motion, supple, no bony tend Respiratory: normal inspection, lungs clear, normal breath sounds, no respiratory distress, no retraction, no wheezing Cardiovascular #1: regular rate, rhythm, no edema Gastrointestinal: normal inspection, normal bowel sounds, non tender, soft, no guarding, no hernia Genitourinary: no CVA tenderness Musculoskeletal: normal inspection, back normal, normal range of motion Neurologic: normal inspection, alert, oriented x3, 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 Differential diagnosis included but was not limited to acute coronary syndrome, pulmonary embolism, pneumonia, aortic dissection, shingles, pneumothorax, aortic dissection, esophageal rupture, pericarditis. The patient was given a breathing treatment for what appears to be COPD exacerbation. The patient refused chest x-ray.The patient was advised risk benefits alternatives of leaving AGAINST MEDICAL ADVICE and he indicated understanding and all questions are answered patient still continued want to leave and signed AGAINST MEDICAL ADVICE. Despite risks including but not limited to disability and worsening of current lifestyle. Last Vital Signs Date Time Temp Pulse Resp B/P (MAP) Pulse Ox O2 Delivery O2 Flow Rate FiO2 09/27/17 16:09 67 20 98 Room Air 21 09/27/17 16:07 98.3 111/70 97.5 Status: improved Disposition: AGAINST MEDICAL ADVICE Condition: Improved Scripts Prednisone* (PREDNISONE*) 20 Mg Tablet 40 MG ORAL DAILY for 4 Days, #8 TAB Prov: Duke Leon MD 09/27/17 Albuterol Sulfate* (ALBUTEROL SULFATE MDI*) 8.5 Gm Hfa.aer.ad 2 PUFF INH Q6H, #1 EA Prov: Duke Leon MD 09/27/17 Patient Instructions: Chronic Obstructive Pulmonary Disease, [id number] Duke Leon MD September 27, 2017 17:47
--- NOTE | 2017-09-30 17:16 | Cardiology Report ---
APPROVED REPORT EKG Measurement Heart [id number] Normal sinus rhythm Normal ECG
== END 2017-09-27 16:10 | disposition left against medical advice (07) ==
LOC: EMR 15:42
DX: J44.9 Chronic obstructive pulmonary disease, unspecified (principal)
CPT/HCPCS: 93005; 94640; 94664; 99284; J7512; J7620

== ENCOUNTER 2017-11-06 01:07 | Emergency (ER) | payer MEDICARE ==
[~2017-11-06] VITALS: Ht 180.3 cm; Wt 68.9 kg
[2017-11-06 01:44] VITALS: BP 113/71
[2017-11-06] MEDS ORDERED: Bacitracin Oint UD TOPIC ONE (02:15)
[2017-11-06 03:30] VITALS: BP 0/0
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
== END 2017-11-06 03:30 | disposition left against medical advice (07) ==
LOC: EMR 02:00
DX: B35.3 Tinea pedis (principal); F41.9 Anxiety disorder, unspecified; J44.9 Chronic obstructive pulmonary disease, unspecified
CPT/HCPCS: 99282

== ENCOUNTER 2017-12-03 00:30 | Emergency (ER) | payer MEDICARE ==
[~2017-12-03] VITALS: Ht 180.3 cm; Wt 68.0 kg
[2017-12-03 01:05] VITALS: BP 126/64
[2017-12-03 01:25] VITALS: BP 126/64
[2017-12-03] MEDS ORDERED: Albuterol ud Inhalation HHN SCH (01:30)
[2017-12-03] MEDS ORDERED: Ipratropium 0.02% Inh Soln 2.5ml UD HHN SCH (01:30)
--- NOTE | 2017-12-05 07:47 | Emergency Room Report ---
History of Present Illness General Chief Complaint: General Complaint Source: Patient Present Illness HPI 52-year-old male presents ED for evaluation. States he stopped breathing earlier tonight. States he stopped breathing for at least 2 minutes. Patient states he was conscious the whole time. Patient arrives insisting that he be seen and evaluated immediately. Denies chest pain. Denies shortness of breath at this time. History of asthma/COPD. Denies smoking or drug use. No other aggravating relieving factors. Denies any other associated symptoms Allergies: Coded Allergies: No Known Allergies (Unverified , 05/03/13) Patient History Past Medical History: asthma, COPD Past Surgical History: none Pertinent Family History: none Social History: Denies: smoking, alcohol use, drug use Immunizations: UTD Reviewed Nursing Documentation: PMH: Agreed; PSxH: Agreed Nursing Documentation-PMH Hx Cardiac Problems: No Hx Hypertension: No Hx Pacemaker: No Hx Asthma: Yes Hx COPD: Yes Hx Diabetes: No Hx Cancer: No Hx Dialysis: No Hx Neurological Problems: No Hx Cerebrovascular Accident: No Hx Seizures: No Hx Weakness: Yes - marisa.lower ext. Review of Systems All Other Systems: negative except mentioned in HPI Physical Exam Vital Signs Date Time Temp Pulse Resp B/P (MAP) Pulse Ox O2 Delivery O2 Flow Rate FiO2 12/03/17 00:46 98.1 64 18 138/64 97 Room Air 98.1 Sp02 EP Interpretation: reviewed, normal General Appearance: no apparent distress, alert, GCS 15, non-toxic Head: normocephalic, atraumatic Eyes: bilateral eye normal inspection, bilateral eye PERRL ENT: hearing grossly normal, normal pharynx, no angioedema, normal voice Neck: full range of motion, supple/symm/no masses Respiratory: chest non-tender, normal breath sounds, speaking full sentences, wheezing Cardiovascular #1: regular rate, rhythm, no edema Cardiovascular #2: 2+ carotid (R), 2+ carotid (L), 2+ radial (R), 2+ radial (L) , 2+ dorsalis pedis (R), 2+ dorsalis pedis (L) Gastrointestinal: normal bowel sounds, non tender, soft, non-distended, no guarding, no rebound Rectal: deferred Genitourinary: normal inspection, no CVA tenderness Musculoskeletal: back normal, gait/station normal, normal range of motion, non- tender Neurologic: alert, oriented x3, responsive, motor strength/tone normal, sensory intact, speech normal Psychiatric: judgement/insight normal, memory normal, no suicidal/homicidal ideation, anxious Reflexes: 3+ bicep (R), 3+ bicep (L), 3+ tricep (R), 3+ tricep (L), 3+ knee (R) , 3+ knee (L) Skin: normal color, no rash, warm/dry, well hydrated Lymphatic: no adenopathy Medical Decision Making Diagnostic Impression: Primary Impression: History of COPD ER Course Hospital Course 52-year-old male presents to ED stating he stopped breathing. h/o COPD Differential diagnoses include: URI, bronchitis, asthma/COPD, pneumonia Clinical course Patient placed on stretcher. After initial history, physical exam reveals an middle aged male in no acute distress. Bilateral TM unremarkable. No pharyngeal erythema. No tonsillar exudates. No lymphadenopathy. Mild wheezing noted on exam, no signs of respiratory distress or retractions. Patient has stable vitals I offered to check labs, EKG and give a breathing treatment. patient declined EKG and labs but he agreed to breathing treatment Before patient could receive breathing treatment he wanted to leave.Patient states he wishes to go home. Understands the risks of leaving. Patient has competency to make his own decisions. Signed AMA form. Diagnosis - history of COPD Patient left AMA Last Vital Signs Date Time Temp Pulse Resp B/P (MAP) Pulse Ox O2 Delivery O2 Flow Rate FiO2 12/03/17 01:25 98.1 71 16 126/64 96 Room Air 98.1 Status: unchanged Disposition: AGAINST MEDICAL ADVICE Condition: Stable Referrals: NOT CHOSEN IPA/,REFERRING (PCP) Oscar Nunez MD Dec 05, 2017 07:47
== END 2017-12-03 01:25 | disposition left against medical advice (07) ==
LOC: EMR 01:03
DX: J44.9 Chronic obstructive pulmonary disease, unspecified (principal)
CPT/HCPCS: 99283

== ENCOUNTER 2018-07-07 17:43 | Emergency (ER) | payer MEDICARE, OTHER ==
[~2018-07-07] VITALS: Ht 182.9 cm; Wt 68.0 kg
[2018-07-07 17:59] VITALS: BP 132/67
[2018-07-07] MEDS ORDERED: ALBUTEROL SULF8.5 GM INH (18:16)
[2018-07-07] MEDS ORDERED: TYLENOL EXTRA500 MG ORAL (18:16)
--- NOTE | 2018-07-07 18:17 | Emergency Room Report ---
History of Present Illness General Chief Complaint: General Complaint Source: Patient Present Illness HPI 52-year-old male patient presents the ER complaining of feeling traumatized status post dog bite to his face 5 months ago. Reports that he still feels like the dog is biting him and experiences intermittent pain in his face. Reports that he had laceration repairs at the time. Denies fever vomiting. Also requesting refill of inhaler medication. Reports history of COPD. Denies fever, chest pain, shortness of breath. Reports not taking his inhaler medication for several days. Reports history of smoking. Denies other aggravating or relieving factors. Denies thoughts of hurting himself or others. Allergies: Coded Allergies: No Known Allergies (Unverified , 05/03/13) Patient History Past Medical History: see triage record Reviewed Nursing Documentation: PMH: Agreed; PSxH: Agreed Nursing Documentation-PMH Past Medical History: No History, Except For Hx Cardiac Problems: No Hx Hypertension: No Hx Pacemaker: No Hx Asthma: Yes Hx COPD: Yes Hx Diabetes: No Hx Cancer: No Hx Dialysis: No Hx Neurological Problems: No Hx Cerebrovascular Accident: No Hx Seizures: No Hx Weakness: Yes - marisa.lower ext. Review of Systems All Other Systems: negative except mentioned in HPI Physical Exam Vital Signs Date Time Temp Pulse Resp B/P (MAP) Pulse Ox O2 Delivery O2 Flow Rate FiO2 07/07/18 17:47 97.9 84 20 132/67 96 Room Air Sp02 EP Interpretation: reviewed, normal General Appearance: well appearing, no apparent distress, alert, GCS 15, non- toxic Head: normocephalic, atraumatic Eyes: bilateral eye normal inspection, bilateral eye PERRL ENT: hearing grossly normal, normal pharynx, no angioedema, normal voice, uvula midline, moist mucus membranes Neck: full range of motion Respiratory: lungs clear, normal breath sounds, no rhonchi, no respiratory distress, no accessory muscle use, no wheezing, speaking full sentences Cardiovascular #1: regular rate, rhythm, no edema Gastrointestinal: non tender, soft, no mass, non-distended, no guarding, no rebound Musculoskeletal: back normal, digits/nails normal, gait/station normal, normal range of motion, non-tender Neurologic: alert, oriented x3, responsive, motor strength/tone normal, sensory intact Psychiatric: mood/affect normal Skin: no rash Medical Decision Making PA Attestation Dr. Person is my supervising Physician whom patient management has been discussed with. Diagnostic Impression: Primary Impression: Encounter for medication refill Additional Impression: Stress ER Course Pt. presents to the ED c/o "feeling traumatized" from dog bites 5 months ago and requesting refill of medication. Ddx considered but are not limited to medication refill, stress, PTSD, anxiety, infection. Vital signs: are WNL, pt. is afebrile ER COURSE: Physical exam unremarkable. Denies chest pain or shortness of breath. Vital signs stable, does not require breathing treatment currently or cardiac workup or labs. No signs of infection, no cellulitis. Will provide refills of albuterol for breathing symptoms. Advised patient follow-up with mental health professional for further evaluation and treatment. Discussed further referral at that time. ER precautions given. Do not believe patient is danger to himself or others at this time, may follow- up as an outpatient. DISCHARGE: At this time pt is stable for d/c to home. Patient is resting comfortably, in no acute distress, nontoxic appearing, talking without difficulty. Patient to take medications as instructed Will provide with patient care instructions and any necessary prescriptions. Care plan and follow-up instructions provided. Patient instructed to follow-up with primary care provider in 3 - 5 days. Patient questions asked and answered. Patient reports understanding and agreement to treatment plan. ER precautions given. Patient instructed to return to ER immediately for any new or worsening of symptoms including but not limited to increasing SOB, persistent fever, chest pain, intractable vomiting. - Please note that this Emergency Department Report was dictated using [employer] changer technology software, occasionally this can lead to erroneous entry secondary to interpretation by the dictation equipment. Last Vital Signs Date Time Temp Pulse Resp B/P (MAP) Pulse Ox O2 Delivery O2 Flow Rate FiO2 07/07/18 17:59 97.9 84 20 132/67 96 Room Air Status: improved Disposition: HOME, SELF-CARE Condition: Stable Scripts Albuterol Sulfate* (ALBUTEROL SULFATE MDI*) 8.5 Gm Hfa.aer.ad 2 PUFF INH Q6H, #1 EA Prov: Tacho Condon P.A. 07/07/18 Acetaminophen* (TYLENOL EXTRA STRENGTH*) 500 Mg Tablet 500 MG ORAL Q6H, #20 TAB 0 Refills Prov: Tacho Condon 07/07/18 Patient Instructions: Generalized Anxiety Disorder, Medicine Refill at the Emergency Department, Posttraumatic Stress Disorder, Stress and Stress Management Additional Instructions: Followup with primary care provider in 3 -5 days. 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 Follow-up with mental health professional to discuss possible management and treatment for possible posttraumatic stress disorder. Take medications as directed. Patient questions asked and answered. ER precautions given, patient instructed to return to ER immediately for any new or worsening of symptoms. Tacho Condon Jul 07, 2018 18:17
[2018-07-07 18:22] VITALS: BP 132/67
--- NOTE | 2018-07-07 18:22 | NUR ---
ER DISCHARGE NOTE: Patient is cleared to be discharged per ERMD, pt is aox4, on room air, with stable vital signs. pt was given dc and prescription instructions, pt was able to verbalize understanding, pt id band removed. pt is able to ambulate with steady gait. pt took all belongings.
== END 2018-07-07 18:22 | disposition home or self-care (01) ==
LOC: EMR 18:15
DX: Z76.0 Encounter for issue of repeat prescription (principal); F43.9 Reaction to severe stress, unspecified; J44.9 Chronic obstructive pulmonary disease, unspecified
CPT/HCPCS: 99282

== ENCOUNTER 2018-08-07 14:26 | Emergency (ER) | payer MEDICARE, OTHER ==
[~2018-08-07] VITALS: Ht 182.9 cm; Wt 72.6 kg
--- NOTE | 2018-08-07 15:10 | Emergency Room Report ---
History of Present Illness General Chief Complaint: Asthma Source: Patient Present Illness HPI 53-year-old male presents to the emergency department complaining of shortness of breath and wheezing with cough 3 days. Patient reports history of COPD and states he is having acute exacerbation after helping clean his mother's house for which was very live and patient attributes this as the precipitating factor for his symptoms. Patient denies fevers or chills denies mucus/sputum production denies swelling in the lower extremities, denies history of cardiac disease. Patient reports that he is a smoker he uses marijuana nightly before bed. He denies recent travel or ill contacts. Denies chest pain palpitations and dizziness or syncope. Allergies: Coded Allergies: No Known Allergies (Unverified , 05/03/13) Patient History Past Medical History: see triage record, old chart reviewed, COPD Past Surgical History: none Pertinent Family History: none Social History: Reports: smoking - THC Reviewed Nursing Documentation: PMH: Agreed; PSxH: Agreed Nursing Documentation-PMH Hx Cardiac Problems: No Hx Hypertension: No Hx Pacemaker: No Hx Asthma: Yes Hx COPD: Yes Hx Diabetes: No Hx Cancer: No Hx Dialysis: No Hx Neurological Problems: No Hx Cerebrovascular Accident: No Hx Seizures: No Hx Weakness: Yes - marisa.lower ext. Review of Systems All Other Systems: negative except mentioned in HPI Physical Exam Vital Signs Date Time Temp Pulse Resp B/P (MAP) Pulse Ox O2 Delivery O2 Flow Rate FiO2 08/07/18 14:43 98.2 84 16 146/64 100 Room Air Sp02 EP Interpretation: reviewed, normal General Appearance: no apparent distress, alert, GCS 15, non-toxic Head: normocephalic, atraumatic Eyes: bilateral eye normal inspection, bilateral eye PERRL ENT: hearing grossly normal, normal voice Neck: full range of motion Respiratory: chest non-tender, speaking full sentences, wheezing Cardiovascular #1: regular rate, rhythm, no edema, normal capillary refill Musculoskeletal: back normal, gait/station normal, normal range of motion, non- tender Neurologic: alert, oriented x3, responsive, motor strength/tone normal, sensory intact, speech normal, grossly normal Psychiatric: judgement/insight normal Skin: normal color, no rash, warm/dry, well hydrated Lymphatic: no adenopathy Medical Decision Making PA Attestation Dr. Leon is my supervising Physician whom patient management has been discussed with. Diagnostic Impression: Primary Impression: COPD exacerbation ER Course Pt. presents to the ED c/o cough and wheezing x 2 days, Pt. has a hx of asthma, and inhaler treatments at home are not helping. Ddx considered but are not limited to asthma exacerbation, CHF, URI, pneumonia, PE, strep pharyngitis, meningitis. Vital signs: Pt. is afebrile, VS are WNL H&PE are most consistent with COPD exacerbation---Patient is in no acute distress, and nontoxic in appearance. --not tachypneic and oxygenating at 100% on room air ORDERS: none required at this time, the diagnosis is clinical ED INTERVENTIONS: - Albuterol nebulized treatment. -Prednisone 60mg PO - re-examination post nebulized treatment lungs are CTA bilaterally. DISCHARGE: At this time pt. is stable for d/c to home. Will provide printed patient care instructions, and any necessary prescriptions. Care plan and follow up instructions have been discussed with the patient prior to discharge. Last Vital Signs Date Time Temp Pulse Resp B/P (MAP) Pulse Ox O2 Delivery O2 Flow Rate FiO2 08/07/18 14:43 98.2 84 16 146/64 100 Room Air Disposition: HOME, SELF-CARE Condition: Stable Scripts Prednisone* (PREDNISONE*) 20 Mg Tablet 40 MG ORAL DAILY for 5 Days, #10 TAB Prov: Doris De La Rosa 08/07/18 Albuterol Sulfate* (ALBUTEROL SULFATE MDI*) 8.5 Gm Hfa.aer.ad 2 PUFF INH Q3H, #1 INH 0 Refills Prov: Doris De La Rosa 08/07/18 Levofloxacin (LEVOFLOXACIN*) 500 Mg Tablet 500 MG ORAL DAILY for 7 Days, #7 TAB Prov: Doris De La Rosa 08/07/18 Patient Instructions: Acute Bronchitis, [id number] Additional Instructions: Take medications as directed. Follow up with a Primary Care Provider in 3-5 days, even if your symptoms have resolved. --Please review list of primary care clinics, if you do not already have a primary care provider Return sooner to ED if new symptoms occur, or current symptoms become worse. Do not drink alcohol, drive, or operate heavy machinery while taking [ ] as this may cause drowsiness. - Please note that this Emergency Department Report was dictated using [employer] supervisor technology software, occasionally this can lead to erroneous entry secondary to interpretation by the dictation equipment. Doris De La Rosa Aug 07, 2018 15:10
--- NOTE | 2018-08-07 15:25 | NUR ---
ED Nurse Note: called respiratory and spoke with Dnoald that pt has breathing tx
[2018-08-07 15:26] VITALS: BP 142/68
[2018-08-07] MEDS ORDERED: Albuterol ud Inhalation HHN ONE (15:30)
[2018-08-07] MEDS ORDERED: ALBUTEROL SULF8.5 GM INH (16:17)
[2018-08-07] MEDS ORDERED: PREDNISONE20 MG ORAL (16:17)
[2018-08-07] MEDS ORDERED: LEVOFLOXACIN500 MG ORAL (16:17)
[2018-08-07 16:26] VITALS: BP 142/68
--- NOTE | 2018-08-07 16:27 | NUR ---
ER DISCHARGE NOTE: Patient is cleared to be discharged per ERMD, pt is aox4, on room air, with stable vital signs. pt was given dc and prescription instructions, pt was able to verbalize understanding, pt id band removed without complications. pt is able to ambulate with steady gait. pt took all belongings.
== END 2018-08-07 16:25 | disposition home or self-care (01) ==
LOC: EMR 14:54
DX: J44.1 Chronic obstructive pulmonary disease with (acute) exacerbation (principal); F12.90 Cannabis use, unspecified, uncomplicated
CPT/HCPCS: 94640; 94664; 99284; J7512

== ENCOUNTER 2018-08-16 08:03 | Emergency (ER) | payer MEDICARE ==
[~2018-08-16] VITALS: Ht 182.9 cm; Wt 68.0 kg
[~2018-08-16 08:03] MED LIST changes: +LEVOFLOXACIN500 MG ORAL
[2018-08-16 08:25] VITALS: BP 114/72
--- NOTE | 2018-08-16 08:26 | Emergency Room Report ---
History of Present Illness General Chief Complaint: Dyspnea/Respdistress Source: Patient Present Illness HPI Patient presents with complaints of shortness of breath and wheezing he reports that he has a history of COPD however still smoking and difficult for him to quit More recently has been having increased wheezing Decreasing improvement with outpatient attempts Denies any chest pain however continues to feel short of breath Denies any vomiting or diarrhea denies any recent travel denies any fever or rash Allergies: Coded Allergies: No Known Allergies (Unverified , 08/16/18) Patient History Past Medical History: see triage record Pertinent Family History: none Reviewed Nursing Documentation: PMH: Agreed; PSxH: Agreed Nursing Documentation-PMH Past Medical History: No History, Except For Hx Cardiac Problems: No Hx Hypertension: No Hx Pacemaker: No Hx Asthma: Yes Hx COPD: Yes Hx Diabetes: No Hx Cancer: No Hx Dialysis: No Hx Neurological Problems: No Hx Cerebrovascular Accident: No Hx Seizures: No Hx Weakness: Yes - marisa.lower ext. Review of Systems All Other Systems: negative except mentioned in HPI Physical Exam Vital Signs Date Time Temp Pulse Resp B/P (MAP) Pulse Ox O2 Delivery O2 Flow Rate FiO2 08/16/18 08:07 97.2 74 16 114/72 92 Room Air Sp02 EP Interpretation: reviewed, normal General Appearance: mild distress - Appears short of breath Head: normocephalic, atraumatic Eyes: bilateral eye PERRL, bilateral eye EOMI ENT: hearing grossly normal, normal pharynx, TMs + canals normal, uvula midline Neck: full range of motion, supple, no meningismus, no bony tend Respiratory: no retraction, no accessory muscle use, crackles, wheezing - Bilaterally Cardiovascular #1: normal peripheral pulses, regular rate, rhythm, no edema, no gallop, no JVD, no murmur Gastrointestinal: normal bowel sounds, non tender, soft, no mass, no organomegaly, non-distended, no guarding, no hernia, no pulsatile mass, no rebound Genitourinary: no CVA tenderness Musculoskeletal: normal inspection Neurologic: oriented x3, responsive, research worker encyclopedia III-XII nml as tested, motor strength/ tone normal, sensory intact Psychiatric: mood/affect normal Skin: normal color, no rash, warm/dry, palpation normal Lymphatic: normal inspection, no adenopathy Medical Decision Making Diagnostic Impression: Primary Impression: COPD (chronic obstructive pulmonary disease) Additional Impression: Respiratory distress ER Course Patient is a fairly complex patient with multiple differential to consideration including but not limited to cardiac cardiopulmonary and vascular emergencies Patient had breathing treatments initiated IV steroids Blood work is appropriate patient is doing somewhat better however still feels significantly short of breath and requires inpatient care Given the patient's insurance he was requested for transfer Labs Test 08/16/18 08:35 White Blood Count 11.9 K/UL (4.8-10.8) Red Blood Count 4.45 M/UL (4.70-6.10) Hemoglobin 13.5 G/DL (14.2-18.0) Hematocrit 40.4 % (42.0-52.0) Mean Corpuscular Volume 91 FL (80-99) Mean Corpuscular Hemoglobin 30.3 PG (27.0-31.0) Mean Corpuscular Hemoglobin Concent 33.3 G/DL (32.0-36.0) Red Cell Distribution Width 11.9 % (11.6-14.8) Platelet Count 354 K/UL (150-450) Mean Platelet Volume 7.4 FL (6.5-10.1) Neutrophils (%) (Auto) 57.5 % (45.0-75.0) Lymphocytes (%) (Auto) 29.1 % (20.0-45.0) Monocytes (%) (Auto) 9.6 % (1.0-10.0) Eosinophils (%) (Auto) 2.9 % (0.0-3.0) Basophils (%) (Auto) 0.9 % (0.0-2.0) Sodium Level 140 MMOL/L (136-145) Potassium Level 4.0 MMOL/L (3.5-5.1) Chloride Level 102 MMOL/L (98-107) Carbon Dioxide Level 31 MMOL/L (21-32) Anion Gap 7 mmol/L (5-15) Blood Urea Nitrogen 10 mg/dL (7-18) Creatinine 0.8 MG/DL (0.55-1.30) Estimat Glomerular Filtration Rate > 60 mL/min (>60) Glucose Level 85 MG/DL (74-106) Calcium Level 8.8 MG/DL (8.5-10.1) Total Bilirubin 0.2 MG/DL (0.2-1.0) Aspartate Amino Transf (AST/SGOT) 16 U/L (15-37) Alanine Aminotransferase (ALT/SGPT) 23 U/L (12-78) Alkaline Phosphatase 38 U/L (46-116) Total Creatine Kinase 91 U/L (26-308) Creatine Kinase MB 2.3 NG/ML (0.0-3.6) Creatine Kinase MB Relative Index 2.5 Troponin I 0.000 ng/mL (0.000-0.056) Pro-B-Type Natriuretic Peptide 64 pg/mL (0-125) Total Protein 7.2 G/DL (6.4-8.2) Albumin 3.6 G/DL (3.4-5.0) Globulin 3.6 g/dL Albumin/Globulin Ratio 1.0 (1.0-2.7) Urine Opiates Screen Negative (NEGATIVE) Urine Barbiturates Screen Negative (NEGATIVE) Phencyclidine (PCP) Screen Negative (NEGATIVE) Urine Amphetamines Screen Negative (NEGATIVE) Urine Benzodiazepines Screen Negative (NEGATIVE) Urine Cocaine Screen Negative (NEGATIVE) Urine Marijuana (THC) Screen Positive (NEGATIVE) Rhythm Strip Diag. Results EP Interpretation: yes Rate: 80 Rhythm: NSR, no PVC's, no ectopy Chest X-Ray Diagnostic Results Chest X-Ray Diagnostic Results : Chest X-Ray Ordered: Yes # of Views/Limited/Complete: 1 View Indication: Shortness of Breath EP Interpretation: Yes Interpretation: no consolidation, no effusion, no pneumothorax Impression: No acute disease Electronically Signed by: Naya Rowell DO Last Vital Signs Date Time Temp Pulse Resp B/P (MAP) Pulse Ox O2 Delivery O2 Flow Rate FiO2 08/16/18 08:07 97.2 74 16 114/72 92 Room Air Status: improved Disposition: XFER SHT-TRM HOSP Condition: Improved Naya Rowell DO Aug 16, 2018 08:26
[2018-08-16] MEDS ORDERED: Solu-MEDROL 125mg Inj IVP ONE (08:30)
[2018-08-16] MEDS ORDERED: Ipratropium 0.02% Inh Soln 2.5ml UD HHN ONE (08:30)
[2018-08-16] MEDS ORDERED: Albuterol ud Inhalation HHN ONE ×2 (08:30→09:30)
[2018-08-16 08:50] LABS: BASOPHILS % (AUTO) 0.9 % (0.0-2.0); EOSINOPHILS % (AUTO) 2.9 % (0.0-3.0); HEMATOCRIT 40.4 % (42.0-52.0); HEMOGLOBIN 13.5 G/DL (14.2-18.0); LYMPHOCYTES % (AUTO) 29.1 % (20.0-45.0); MEAN CORPUSCULAR VOLUME 91 FL (80-99); MONOCYTES % (AUTO) 9.6 % (1.0-10.0); NEUTROPHILS % (AUTO) 57.5 % (45.0-75.0); PLATELET COUNT 354 K/UL (150-450); RED BLOOD COUNT 4.45 M/UL (4.70-6.10); RED CELL DISTRIBUTION WIDTH 11.9 % (11.6-14.8); WHITE BLOOD COUNT 11.9 K/UL (4.8-10.8)
[2018-08-16 09:04] LABS: ANION GAP 7 mmol/L (5-15); BLOOD UREA NITROGEN 10 mg/dL (7-18); CALCIUM 8.8 MG/DL (8.5-10.1); CARBON DIOXIDE 31 MMOL/L (21-32); CHLORIDE 102 MMOL/L (98-107); CREATININE 0.8 MG/DL (0.55-1.30); SODIUM 140 MMOL/L (136-145)
[2018-08-16 09:19] LABS: ALANINE AMINOTRANSFERASE 23 U/L (12-78); ALBUMIN 3.6 G/DL (3.4-5.0); ALKALINE PHOSPHATASE 38 U/L (46-116); ASPARTATE AMINO TRANSFERASE 16 U/L (15-37); BILIRUBIN,TOTAL 0.2 MG/DL (0.2-1.0); CKMB 2.3 NG/ML (0.0-3.6); CREATINE KINASE 91 U/L (26-308)
--- NOTE | 2018-08-16 09:40 | Diagnostic Imaging Report ---
Indication: Shortness of breath Technique: XRAY Chest 1v Comparison: 07/27/2017 and 07/23/2017 Findings: Heart size and mediastinal contours are within normal limits and stable compared to the prior exam. Atherosclerotic calcifications again noted. Some scarring is again noted in the apices. Question mild central peribronchial thickening. There is no focal consolidation, pneumothorax or pleural effusion. Osseous structures demonstrate no acute abnormality. IMPRESSION: Questionable mild peribronchial thickening, a finding which may suggest small airway disease/bronchitis. Correlate clinically. No focal airspace consolidation, pleural effusion, pneumothorax or evidence of pulmonary edema.
[2018-08-16] MEDS ORDERED: LORazepam Inj 2mg/ml 1ml ONE (10:58)
[2018-08-16] MEDS ORDERED: LORazepam Inj 2mg/ml 1ml IV ONE (11:00)
[2018-08-16 11:02] VITALS: BP 124/70
== END 2018-08-16 11:12 | disposition other institution (70) ==
LOC: EMR 08:20
DX: J44.9 Chronic obstructive pulmonary disease, unspecified (principal); F17.200 Nicotine dependence, unspecified, uncomplicated
CPT/HCPCS: 36415; 71045; 80053; 80307; 82550; 82553; 83880; 84484; 85025; 93005; 94640; 94664; 96374; 96375; 99284; J2930; J7040